=== PATIENT | male | born 1960 | race African-American/Black ===

== ENCOUNTER 2020-01-29 02:11 | Inpatient (IN) | payer MEDICARE, MEDICAID ==
[~2020-01-29] VITALS: Ht 175.3 cm; Wt 68.0 kg
--- NOTE | 2020-01-29 02:32 | NUR ---
ED Nurse Note: pt presents to ED c/o abd cramping and abnormal stools. pt's story is hard to follow but he mentions bhing seen and treated at another hospital for similar symptoms and also states that he has been incontinent of his bowels lately, noticing stool on his clothing
[2020-01-29 02:36] VITALS: BP 132/80
--- NOTE | 2020-01-29 02:53 | Emergency Room Report ---
History of Present Illness General Chief Complaint: General Complaint Source: Patient Present Illness HPI Patient presents claiming that he is passing blood per rectum. He states that he was admitted at [facility] for 2 days and just discharged yesterday. He states at [facility] he was passing black stool and bloody stool but they did not look. He states that he has been kicked out of his sister's place and needs assisted living. He states he drinks alcohol daily vodka and litzy. He is status post stroke with not taking blood thinners at this time. He has a history of seizures and is supposed be taking Depakote and Dilantin. He does not recall his last seizure. The patient is status post stroke and has right hand weakness. The patient was last evaluated here in 2016. He was treated for schizophrenia with exacerbation. At that time he was taking Seroquel and Cogentin. He was able to be discharged. No fevers, chills, sore throat, chest pain, palpitations, nausea, vomiting, diarrhea, dysuria, abdominal pain, shortness of breath, joint pain, rashes, depression, anxiety, visual changes, dizziness, headache. Allergies: Coded Allergies: MORPHINE (Verified Allergy, Unknown, 08/10/15) COVID-19 Screening Contact w/high risk pt: No Recent Travel to affected area: No Experienced COVID-19 symptoms?: No COVID-19 Testing performed INSURANCE ADJUSTOR: No Patient History Past Medical History: see triage record Social History: Reports: alcohol use; Denies: smoking Social History Narrative Homeless Reviewed Nursing Documentation: PMH: Agreed; PSxH: Agreed Nursing Documentation-PM Past Medical History: No History, Except For Hx Seizures: Yes Review of Systems All Other Systems: negative except mentioned in HPI Physical Exam Vital Signs Date Time Temp Pulse Resp B/P (MAP) Pulse Ox O2 Delivery O2 Flow Rate FiO2 01/29/20 02:13 98.1 89 20 132/80 (97) 90 Room Air Sp02 EP Interpretation: reviewed, abnormal - Interpreted as low by me General Appearance: no apparent distress, thin, Chronically Ill Head: normocephalic Eyes: bilateral eye normal inspection, bilateral eye PERRL, bilateral eye EOMI ENT: moist mucus membranes - Or dentition no lingual macerations Neck: supple Respiratory: lungs clear, normal breath sounds Cardiovascular #1: regular rate, rhythm Cardiovascular #2: 2+ radial (R) Gastrointestinal: normal inspection, normal bowel sounds, non tender, no mass, non-distended Genitourinary: no CVA tenderness Musculoskeletal: other - Contractures right hand Neurologic: yard pipe grader III-XII nml as tested, oriented - x2, DTRs symmetric, sensory intact, motor weakness - Right upper extremity, speech normal, normal gait Psychiatric: mood/affect normal, no delusions Skin: no rash, warm/dry Medical Decision Making Diagnostic Impression: Primary Impression: Lower gastrointestinal bleed Additional Impressions: Alcohol abuse Subtherapeutic anticonvulsant levels Failure to thrive Qualified Codes: R62.7 - Adult failure to thrive ER Course Patient presents with reports of passing blood per rectum and possibly melena. Differential includes lower GI bleed, anemia, alcoholic gastritis amongst others. In addition based on history he is at risk for alcohol withdrawal. He is a complicated patient with multiple comorbidities. Evaluation with EKG, chest x-ray and labs. Patient treated with IV hydration. The patient is placed on a awake overnight monitor. EKG without injury. Chest x-ray without infiltrates. CBC and CMP normal. Tox screen positive for benzodiazepines. Hematocrit and hemoglobin normal. Valproic acid and Dilantin levels extremely low. Replacement ordered. Needs observation for possible alcohol withdrawal. Also clearly non-compliant with medication regimen. Social service, consult ordered. Patient admitted to medical floor. Laboratory Tests Test 01/29/20 03:06 01/29/20 03:23 White Blood Count 7.9 K/UL (4.8-10.8) Red Blood Count 4.96 M/UL (4.70-6.10) Hemoglobin 13.1 G/DL (14.2-18.0) L Hematocrit 42.7 % (42.0-52.0) Mean Corpuscular Volume 86 FL (80-99) Mean Corpuscular Hemoglobin 26.5 PG (27.0-31.0) L Mean Corpuscular Hemoglobin Concent 30.8 G/DL (32.0-36.0) L Red Cell Distribution Width 15.2 % (11.6-14.8) H Platelet Count 236 K/UL (150-450) Mean Platelet Volume 8.2 FL (6.5-10.1) Neutrophils (%) (Auto) 44.5 % (45.0-75.0) L Lymphocytes (%) (Auto) 45.3 % (20.0-45.0) H Monocytes (%) (Auto) 6.0 % (1.0-10.0) Eosinophils (%) (Auto) 1.7 % (0.0-3.0) Basophils (%) (Auto) 2.5 % (0.0-2.0) H Sodium Level 143 MMOL/L (136-145) Potassium Level 4.0 MMOL/L (3.5-5.1) Chloride Level 106 MMOL/L (98-107) Carbon Dioxide Level 28 MMOL/L (21-32) Anion Gap 9 mmol/L (5-15) Blood Urea Nitrogen 28 mg/dL (7-18) H Creatinine 1.2 MG/DL (0.55-1.30) Estimated Glomerular Filtration Rate > 60 mL/min (>60) Glucose Level 88 MG/DL (74-106) Calcium Level 8.9 MG/DL (8.5-10.1) Total Bilirubin 0.2 MG/DL (0.2-1.0) Aspartate Amino Transferase (AST) 23 U/L (15-37) Alanine Aminotransferase (ALT) 19 U/L (12-78) Alkaline Phosphatase 83 U/L (46-116) Total Creatine Kinase 175 U/L (26-308) Troponin I 0.000 ng/mL (0.000-0.056) Total Protein 8.5 G/DL (6.4-8.2) H Albumin 3.7 G/DL (3.4-5.0) Globulin 4.8 g/dL Albumin/Globulin Ratio 0.8 (1.0-2.7) L Thyroid Stimulating Hormone (TSH) 1.818 uiU/mL (0.358-3.740) Salicylates Level 3.2 ug/mL (2.8-20) Acetaminophen Level < 2 MCG/ML (10-30) L Phenytoin (Dilantin) Level 0.6 ug/mL (10-20) L Valproic Acid Level 23 MCG/ML (50-100) L Serum Alcohol < 3 mg/dL Urine Color Pale yellow Urine Appearance Clear Urine pH 5 (4.5-8.0) Urine Specific [place] 1.025 (1.005-1.035) Urine Protein Negative (NEGATIVE) Urine Glucose (UA) Negative (NEGATIVE) Urine Ketones 1+ (NEGATIVE) H Urine Blood Negative (NEGATIVE) Urine Nitrite Negative (NEGATIVE) Urine Bilirubin Negative (NEGATIVE) Urine Urobilinogen 1 MG/DL (0.0-1.0) H Urine Leukocyte Esterase Negative (NEGATIVE) Urine Opiates Screen Negative (NEGATIVE) Urine Barbiturates Screen Negative (NEGATIVE) Phencyclidine (PCP) Screen Negative (NEGATIVE) Urine Amphetamines Screen Negative (NEGATIVE) Urine Benzodiazepines Screen Positive (NEGATIVE) H Urine Cocaine Screen Negative (NEGATIVE) Urine Marijuana (THC) Screen Negative (NEGATIVE) EKG Diagnostic Results Rate: normal Rhythm: NSR ST Segments: no acute changes Rhythm Strip Diag. Results EP Interpretation: yes Rhythm: NSR, no PVC's, no ectopy Chest X-Ray Diagnostic Results Chest X-Ray Diagnostic Results : Chest X-Ray Ordered: Yes # of Views/Limited/Complete: 1 View Indication: Other EP Interpretation: Yes Interpretation: no consolidation, no effusion, no pneumothorax Impression: No acute disease Electronically Signed by: Electronically signed by Yohannes Melo MD Last Vital Signs Date Time Temp Pulse Resp B/P (MAP) Pulse Ox O2 Delivery O2 Flow Rate FiO2 01/29/20 08:00 98.1 94 20 124/80 (95) 94 01/29/20 06:08 Room Air Status: improved Disposition: ADMITTED INPATIENT Condition: Serious Referrals: NOT CHOSEN SERINA/,REFERRING (PCP) Yohannes Melo MD Jan 29, 2020 02:53
[2020-01-29 03:25] LABS: BASOPHILS % (AUTO) 2.5 % (0.0-2.0); EOSINOPHILS % (AUTO) 1.7 % (0.0-3.0); HEMATOCRIT 42.7 % (42.0-52.0); HEMOGLOBIN 13.1 G/DL (14.2-18.0); LYMPHOCYTES % (AUTO) 45.3 % (20.0-45.0); MEAN CORPUSCULAR VOLUME 86 FL (80-99); NEUTROPHILS % (AUTO) 44.5 % (45.0-75.0); PLATELET COUNT 236 K/UL (150-450); RED BLOOD COUNT 4.96 M/UL (4.70-6.10); RED CELL DISTRIBUTION WIDTH 15.2 % (11.6-14.8); WHITE BLOOD COUNT 7.9 K/UL (4.8-10.8)
[2020-01-29 03:37] LABS: ANION GAP 9 mmol/L (5-15); BLOOD UREA NITROGEN 28 mg/dL (7-18); CALCIUM 8.9 MG/DL (8.5-10.1); CARBON DIOXIDE 28 MMOL/L (21-32); CHLORIDE 106 MMOL/L (98-107); CREATININE 1.2 MG/DL (0.55-1.30); SODIUM 143 MMOL/L (136-145)
[2020-01-29 03:43] LABS: APPEARANCE,URINE CLEAR; COLOR,URINE PALE YELLOW
[2020-01-29 03:44] LABS: BILIRUBIN, URINE NEGATIVE (NEGATIVE); GLUCOSE, URINE (UA) NEGATIVE (NEGATIVE); KETONES,URINE 1+ (NEGATIVE); LEUKOCYTE ESTERASE ,URINE NEGATIVE (NEGATIVE); NITRITE,URINE NEGATIVE (NEGATIVE); PH,URINE 5 (4.5-8.0); PROTEIN,URINE NEGATIVE (NEGATIVE); UROBILINOGEN,URINE 1 MG/DL (0.0-1.0)
[2020-01-29 03:50] LABS: ALANINE AMINOTRANSFERASE 19 U/L (12-78); ALBUMIN 3.7 G/DL (3.4-5.0); ALBUMIN/GLOBULIN RATIO 0.8 (1.0-2.7); ALKALINE PHOSPHATASE 83 U/L (46-116); ASPARTATE AMINO TRANSFERASE 23 U/L (15-37); BILIRUBIN,TOTAL 0.2 MG/DL (0.2-1.0); CREATINE KINASE 175 U/L (26-308)
[2020-01-29] MEDS ORDERED: Phenytoin 1,000 MG in NS 275 ML IVPB STA (03:59)
--- NOTE | 2020-01-29 04:42 | NUR ---
ED Nurse Note: report given to MARTHA Garcia
[2020-01-29 05:15] VITALS: BP 111/75
[2020-01-29] MEDS ORDERED: Phenytoin 100mg cap ORAL STA (05:15)
--- NOTE | 2020-01-29 06:02 | NUR ---
NURSES NOTE: Received pt from ER at 0510. Pt A/OX3, able to answer most questions appropriately. No outward s/s of distress noted. Breathing pattern is even and unlabored on RA. Head to toe assessment completed. Skin is clear and intact. IV site R external jugular vein, in tact, infusing medications without incident. Pt denies pain at this time. New orders processed for admission. All due meds will be given. Bed at lowest level, call light within reach. Pt will continue to be monitored.
[2020-01-29] MEDS ORDERED: HYDROmorphone 1mg/ml Carpuject IVP PRN (06:45)
--- NOTE | 2020-01-29 07:30 | NUR ---
NURSE NOTES: Report received from Radha THOMAS, rounds made. Patient resting in semi-fowlers position in bed. AOx2, reoriented patient to place/time and call light, verbalized understanding, calm. No distress, respirations even/unlabored on RA. Right external jugular IV heplock in place, asymptomatic (will start IVF as ordered). Seizure precautions (seizure pads in place). Call light in reach, bed in lowest position, will continue to monitor.
[2020-01-29 08:00] VITALS: BP 124/80
--- NOTE | 2020-01-29 08:22 | NUR ---
NURSES NOTE: Requests from Dr. Clemons to call Dr Clark for possible further admission orders. Message left. Endorsed to f/u with AM nurse. Dr. Howell contacted for additional admission orders as well from request of Dr Clemons. New order from Dante- to make diet clear liquid and further changes would be made upon his visit with patient.
--- NOTE | 2020-01-29 08:28 | NUR ---
HAND OFF: Report given to MARTHA Bradley. Pt stable.
--- NOTE | 2020-01-29 09:00 | NUR ---
*-* INSURANCE *-* PATIENT HAS EXHAUSTED MEDICARE DAY HAS A SECONDARY INSURANCE IS [employer] W/ SOC $790.00
--- NOTE | 2020-01-29 10:28 | Diagnostic Imaging Report ---
Procedure: XRAY Chest 1v Reason for study: Cough Comparison films: None. FINDINGS: A single one view chest is obtained. Vascularity is normal. Mild interstitial prominence likely geriatric changes. No acute alveolar process. Cardiac and mediastinal silhouette are within normal limits. CP angles are sharp. The bony thorax appear unremarkable. IMPRESSION: NO ACUTE CARDIOPULMONARY DISEASE.
--- NOTE | 2020-01-29 10:51 | NUR ---
HORSE TREKKING GUIDE NOTE SW met w/ pt to assess his needs and discuss substance abuse. Pt presents as A&O 4x. RUDS positive for Benzo. PT reports he has dx of Schizophrenia and was prescribed Seroquel, [place] and Depakote. Pt denies current drug abuse. Pt has hx of ETOH and Meth abuse. Pt has been homeless for 1 1/2 years after leaving [facility] [address]. LEANDRA spoke w/ Lee, Admin from [facility] [address] and was informed pt abused methamphetamine while staying at his facility and he was not the payee of pt's income. Lee reports pt left the facility stating that he will move out of state. Lee confirmed he will not take pt back. Pt reports he received SSDI $1351/mo but had no access to fund more than a year. PT lost his ID and his SSDI fund card. LEANDRA encouraged pt to call office to receive his income. PT reports he was recently discharged from [facility] a few days ago. Pt reports he was given community resource. Pt is ambulatory w/o DMEs and independent w/ ADLs. Emergency contact: Anita Rosado (sister)[phone] EMERGENCY ONLY SW will contact several facilities to see if they are willing to accept pt.
--- NOTE | 2020-01-29 11:00 | NUR ---
NURSE NOTES: Reconciled at there are no home medications with Dr. Clemons, however pharmacy inquiring if patient will be starting Depakote due to seizure history and previous order (which was cancelled). Provided information from ER MD note and pharmacy recommendation for Depakote 500 mg PO Q12 hr, instructed to find out patient's pharmacy information to call them and get the correct dose he is taking, informed Dr. Clemons patient is homeless and patient states he does not get his medication from a pharmacy, but from a SNF, updated [facility] pharmacy of above. Also notified Dr. Clemons, if patient needed COVID swab done, patient is asymptomatic, so no testing required at this time.
[2020-01-29] MEDS: D5 1/2NS 1,000 ML IV SCH ×2 (11:15→23:25)
--- NOTE | 2020-01-29 11:15 | NUR ---
NURSE NOTES: Left message for Dr. Clark regarding patient's admission, no further orders at this time.
[2020-01-29 12:00] VITALS: BP 104/68
--- NOTE | 2020-01-29 12:22 | NUR ---
INSPECTOR EXHAUST EMISSIONS NOTE SW spoke w/ Aminta from [facility] [phone] #[phone] that there is no bed available in any [facility] area.
--- NOTE | 2020-01-29 14:45 | NUR ---
NURSE NOTES: Discussed DVT prophylaxis with Dr. Clemons, orders for ambulate TID, informed Dr. Clemons, patient has history of stroke with right sided weakness, order for PT evaluation (plan for 01/29, MD aware) and SCDs (applied at 1445).
--- NOTE | 2020-01-29 15:48 | NUR ---
NURSE NOTES: Patient returned from CT head, via bed, alert/oriented x2, calm, on RA.
[2020-01-29 16:00] VITALS: BP 97/63
--- NOTE | 2020-01-29 16:31 | Diagnostic Imaging Report ---
EXAM: CT CT Head no Contrast INDICATION: Altered mental status. TECHNIQUE: Axial images of the brain were obtained with subsequent sagittal and coronal reformats. All CT scans at this facility are performed using dose modulation techniques as appropriate to a performed exam including the following: automated exposure control with adjustment of the mA and/or kV according to patient size. COMPARISON STUDY: None. RADIATION DOSE: CTDIvol: 53.4 mGy DLP: 1098.9 mGy-cm Dose information generated by the CT scanner is available in PACS. FINDINGS: There is age related senescent changes with ventricular and sulcal prominence. White matter micro-ischemic changes noted. There is no acute large territory cortical infarct, hemorrhage, mass effect or shift. Ventricles and cisterns as well as brainstem and posterior fossa appear unremarkable. The sellar region is normal. Sinuses, mastoid air cells and bony calvarium appear intact. IMPRESSION: Age related senescent changes. No acute intracranial abnormality.
[2020-01-29] MEDS: Hydrocortisone 25mg supp RECTAL SCH (18:46)
[2020-01-29 20:00] VITALS: BP 110/65
--- NOTE | 2020-01-29 20:15 | Consultation ---
DATE OF CONSULTATION: 01/29/2020 CHIEF COMPLAINT: Rectal bleeding. HISTORY OF PRESENT ILLNESS: This is a very pleasant male with complaint of rectal bleeding. According to him, he had diarrhea one episode and then had some blood. He has not had this problem since then. He was apparently admitted to [facility]. He was sent home. He said without any admission. He is a chronic drinker. He drinks alcohol vodka and litzy every day, prior history of stroke, high blood pressure, seizure disorder. ALLERGIES: To morphine. MEDICATIONS: Please see medication reconciliation list. PAST SURGICAL HISTORY: Undescended testicle which has been repaired. SOCIAL HISTORY: The patient smokes and drinks. Denies any IV drug abuse. PHYSICAL EXAMINATION: VITAL SIGNS: Temperature 97.8, pulse 87, respirations 18, blood pressure is 104/68. HEENT: Normocephalic and atraumatic. Sclerae are anicteric. NECK: Supple. No evidence of obvious lymphadenopathy. CARDIOVASCULAR: Regular rhythm. Plus S1, S2. LUNGS: Clear to auscultation bilaterally. ABDOMEN: Positive bowel sounds. Soft and nontender. No rebound. No guarding. No peritoneal sign. EXTREMITIES: No cyanosis. No clubbing. No edema. LABORATORY AND DIAGNOSTIC DATA: White count 7.9, hemoglobin 13, hematocrit 42, platelet count is 236. ASSESSMENT AND PLAN: This is a 60-year-old male with history of alcoholism, alcoholic, came in with questionable GI bleeding with hemoglobin of 13. Plan to start the patient on Protonix 40 mg daily, Anusol-HC for possible hemorrhoids as a cause of rectal bleeding. Followup endoscopy and colonoscopy at this time given the hemoglobin of 13 and no recurrent GI bleeding at this time. The patient was encouraged to stop drinking and the risk of the drinking has been explained to him. I want to thank, Dr. Sami Clemons, for this kind referral. Dilshad Clark M.D. DR: Cornelia JOB#: [id number] CC: Sami Clemons D.O.
--- NOTE | 2020-01-29 20:18 | NUR ---
HAND-OFF: Report given to Radha THOMAS, patient stable.
[2020-01-29] MEDS ORDERED: Phenytoin 100mg cap ORAL SCH (21:00)
--- NOTE | 2020-01-29 21:30 | History and Physical Report ---
DATE OF ADMISSION: 01/29/2020 CONSULTANTS: 1. Dilshad Clark M.D. 2. Daniela Pike M.D. CHIEF COMPLAINT: Lower GI bleed. BRIEF HISTORY: This is a 60-year-old homeless man, who presents to [facility] with the above-mentioned diagnoses. Currently, sleeping in bed, refusing to answer questions. REVIEW OF SYSTEMS: Unavailable. PAST MEDICAL HISTORY: 1. Failure to thrive. 2. Low GI bleed. 3. Alcohol abuse. PAST SURGICAL HISTORY: Unknown. MEDICATIONS: IV fluids, Zofran, Dilaudid, and valproic. ALLERGIES: Morphine. SOCIAL HISTORY: Unable to obtain secondary to the patient is very lethargic and sleepy. OBJECTIVE: GENERAL: Lethargic in bed, not talking much. VITAL SIGNS: Temperature is 97 degrees, pulse 87, respirations 18, and blood pressure 104/68. CARDIOVASCULAR: S1, S2. No murmur. LUNGS: Poor air exchange. ABDOMEN: Bowel sounds distant. EXTREMITIES: No cyanosis, clubbing, or edema. NEUROLOGIC: The patient is sleepy in bed. Not following directions. LABORATORY AND DIAGNOSTIC DATA: Labs at this time show hemoglobin and hematocrit are 13 and 42, otherwise CBC is normal. BMP shows BUN 28. Troponin 0.00. Urinalysis, 1+ ketone. Urine toxicology, positive benzo. ASSESSMENT: 1. Lower GI bleed. 2. Failure to thrive. PLAN: 1. GI evaluation. 2. I will ask Psych to evaluate. 3. We will continue to follow this patient. 4. CBC and BMP in the morning. Sami Clemons D.O. DR: MAHI JOB#: [id number] CC:
[2020-01-29] MEDS: Depakote 500mg tab ORAL SCH (22:08)
--- NOTE | 2020-01-29 22:29 | NUR ---
NURSES NOTE: Met pt in bed, A/OX3, pt is able to answer most questions appropriately. No outward s/s of distress noted. Breathing pattern is even and unlabored on RA. Pt denies pain at this time. IV R external jugular, intact, patent. All due medications will be given. Bed at lowest level, call light within reach. Pt will continue to be monitored.
[2020-01-30] VITALS: BP 104/73
[2020-01-30 04:00] VITALS: BP 108/71
[2020-01-30 06:08] LABS: HEMATOCRIT 41.7 % (42.0-52.0); HEMOGLOBIN 12.7 G/DL (14.2-18.0); MEAN CORPUSCULAR VOLUME 87 FL (80-99); PLATELET COUNT 220 K/UL (150-450); RED BLOOD COUNT 4.82 M/UL (4.70-6.10); RED CELL DISTRIBUTION WIDTH 15.3 % (11.6-14.8); WHITE BLOOD COUNT 6.2 K/UL (4.8-10.8)
[2020-01-30 06:21] LABS: ANION GAP 8 mmol/L (5-15); BLOOD UREA NITROGEN 18 mg/dL (7-18); CALCIUM 8.2 MG/DL (8.5-10.1); CARBON DIOXIDE 26 MMOL/L (21-32); CHLORIDE 106 MMOL/L (98-107); POTASSIUM 3.9 MMOL/L (3.5-5.1); SODIUM 140 MMOL/L (136-145)
[2020-01-30] MEDS ORDERED: LORazepam 1mg tab ORAL PRN (06:45)
--- NOTE | 2020-01-30 07:25 | NUR ---
NURSE NOTES: Report received from Radah THOMAS, rounds made. Patient sleeping in semi-fowlers position in bed, easily arousable. AOx4, calm. No distress, respirations even/unlabored on RA. Right external jugular IV heplock in place, asymptomatic (IV D5 1/2 NS at 60 ml/hr). Seizure precautions (seizure pads in place). Call light in reach, bed in lowest position, will continue to monitor.
--- NOTE | 2020-01-30 07:49 | NUR ---
HAND OFF: Report given to MARTHA Bradley.
[2020-01-30 07:59] VITALS: BP 122/69
[2020-01-30] MEDS: Hydrocortisone 25mg supp RECTAL SCH ×2 (08:15→18:00)
[2020-01-30] MEDS: Depakote 500mg tab ORAL SCH (08:15)
--- NOTE | 2020-01-30 10:10 | NUR ---
PT EVALUATION NOTE Patient seen for initial evaluation and treatment initiated. Patient presents with generalized weakness and decreased balance which impairs patient's ability to perform mobility tasks safely. Patient requires CGA for transfers, unsteady upon standing. Patient able to ambulate 125 ft, used FWW for ambulation for improved balance as gait is ataxic and patient is fall risk. Patient will benefit from skilled inpatient PT intervention to address strength, balance and safety for improved level of functional mobility. Recommend discharge to [facility] once medically cleared by MD. Recommend FWW for safe ambulation and to decrease fall risk. Addendum: 01/30/20 at 1157 by CHARLA MCCONNELL PT Amended: Links added.
--- NOTE | 2020-01-30 10:55 | General Progress Note ---
Assessment/Plan Problem List: (1) CVA (cerebral vascular accident) ICD Codes: I63.9 - Cerebral infarction, unspecified SNOMED: 982437981 (2) Failure to thrive SNOMED: 27383143 Qualifiers: Qualified Codes: R62.7 - Adult failure to thrive (3) Alcohol abuse ICD Codes: F10.10 - Alcohol abuse, uncomplicated SNOMED: 34905207 (4) Lower gastrointestinal bleed ICD Codes: K92.2 - Gastrointestinal hemorrhage, unspecified SNOMED: 85469656 Status: unchanged Assessment/Plan: pt diet gi f/u cbc bmp am dc plan Subjective Constitutional: Reports: weakness Allergies: Coded Allergies: MORPHINE (Verified Allergy, Unknown, 08/10/15) All Systems: reviewed and negative except above Subjective sleepy in bed calm Objective Last 24 Hour Vital Signs Date Time Temp Pulse Resp B/P (MAP) Pulse Ox O2 Delivery O2 Flow Rate FiO2 01/30/20 08:00 Room Air 01/30/20 07:59 98.2 71 20 122/69 (86) 98 01/30/20 04:00 97.6 73 17 108/71 (83) 94 01/30/20 00:00 98.5 85 18 104/73 (83) 93 01/29/20 21:00 Room Air 01/29/20 20:00 98.6 86 18 110/65 (80) 98 01/29/20 16:00 97.6 81 20 97/63 (74) 97 01/29/20 12:00 97.8 87 18 104/68 (80) 96 Intake and Output 01/29/20 01/30/20 19:00 07:00 Intake Total 920 ml 960 ml Output Total 800 ml 315 ml Balance 120 ml 645 ml Intake Oral 500 ml 480 ml IV Total 420 ml 480 ml Output Urine Total 800 ml 315 ml # Voids 1 # Bowel Movements 2 3 Laboratory Tests 01/29/20 17:00: Ammonia 42H, Vitamin B12 Level 512, Methylmalonic Acid [Pending], Rapid Plasma Reagin Non reactive, Treponema pallidum Ab (FTA-ABS) [Pending] 01/30/20 05:00: White Blood Count 6.2, Red Blood Count 4.82, Hemoglobin 12.7L, Hematocrit 41.7L , Mean Corpuscular Volume 87, Mean Corpuscular Hemoglobin 26.4L, Mean Corpuscular Hemoglobin Concent 30.5L, Red Cell Distribution Width 15.3H, Platelet Count 220, Mean Platelet Volume 8.3, Neutrophils (%) (Auto) , Lymphocytes (%) (Auto) , Monocytes (%) (Auto) , Eosinophils (%) (Auto) , Basophils (%) (Auto) , Differential Total Cells Counted 100, Neutrophils % ( Manual) 24L, Lymphocytes % (Manual) 55H, Monocytes % (Manual) 18H, Eosinophils % (Manual) 2, Basophils % (Manual) 1, Band Neutrophils 0, Platelet Estimate Adequate, Platelet Morphology Normal, Sodium Level 140, Potassium Level 3.9, Chloride Level 106, Carbon Dioxide Level 26, Anion Gap 8, Blood Urea Nitrogen 18 , Creatinine 1.0, Estimat Glomerular Filtration Rate > 60, Glucose Level 88, Calcium Level 8.2L Height (Feet): 5 Height (Inches): 9.00 Weight (Pounds): 150 General Appearance: lethargic EENT: normal ENT inspection Neck: normal alignment Cardiovascular: normal peripheral pulses, normal rate, regular rhythm Respiratory/Chest: chest wall non-tender, lungs clear, normal breath sounds Abdomen: normal bowel sounds, non tender, soft Extremities: normal inspection Edema: no edema noted Arm (L), no edema noted Arm (R), no edema noted Leg (L), no edema noted Leg (R), no edema noted Pedal (L), no edema noted Pedal (R), no edema noted Generalized Skin: normal pigmentation, warm/dry Sami Clemons DO Jan 30, 2020 10:55
--- NOTE | 2020-01-30 10:59 | Consultation ---
DATE OF CONSULTATION: 01/29/2020 NEUROLOGIC CONSULTATION CONSULTING PHYSICIAN: Karl Howell MD CHIEF COMPLAINT: This 60-year-old left-handed man with a history of schizophrenia, possible previous cerebral aneurysm treatment at [facility] years ago, previous stroke, possible head injury. He claims diabetes. He was admitted with a chief complaint of lower GI bleeding. On admission, his CBC revealed a normal white count and platelet count, slightly low hemoglobin, but normal hematocrit. His indices were low. Toxicology results reveal the Dilantin of 0.6 and valproic acid of 23. He had benzodiazepines in the urine. Serum salicylates were elevated. His alcohol level is less than 3. The patient was admitted to the emergency room and was started on 1000 mg of IV Dilantin and 400 mg of oral Dilantin and he was given 1 dose of valproic acid 500 mg and then 500 mg twice a day. The patient's chemistries were normal except for BUN of 28 and high total protein of 8.5. Urinalysis is basically normal. The chest x-ray was unremarkable for his age. As far as I can tell, the patient had no seizure on admission. I was asked to see the patient to prescribe his Depakote and Dilantin. The patient apparently takes aspirin. He does not know the doses of Dilantin and Depakote. He is basically a heavy drinker and has been a heavy smoker, so he started to quit alcohol 2 days ago. The patient cannot give a good history. He states he has had migraines in the past. He denies any memory loss. He cannot tell me when he had his last seizure. There is no family history of neurologic disease available. PAST MEDICAL HISTORY/PAST MEDICAL ILLNESSES: 1. See above for aneurysm and stroke. 2. History of diabetes. 3. Probable chronic obstructive pulmonary disease. 4. Alcohol abuse. ALLERGIES: He is allergic allegedly to morphine SOCIAL HISTORY: He lives in [facility]. He also apparently lived with his sister, but was kicked out of his sister's home. FAMILY HISTORY: Unavailable. REVIEW OF SYSTEMS: Unavailable. PHYSICAL EXAMINATION: GENERAL: He is an overweight man, lying in bed, with distended abdomen. VITAL SIGNS: Temperature is 97.8 degrees, blood pressure is 104/68, respiratory rate is 18, pulse oximetry is 96% on room air. HEENT: Examination of the head reveals very poor dentition. NECK: Supple. Carotids are +1. No bruits could be appreciated. LUNGS: Clear. CARDIOVASCULAR: Heart tones are distant. No obvious S3, S4, murmurs, or rubs. ABDOMEN: Bowel sounds are intact. There is no obvious tenderness, masses or organomegaly. EXTREMITIES: He has a wrist drop, right. NEUROLOGIC EXAMINATION: MENTAL STATUS: Judgment could not be tested. He was lethargic and will fall asleep. He was not stimulated. Sometimes he responded with stimulation of his body. Affect was appropriate to flat. Memory, he knew past memory, birthday was 1960. Immediate recall was 3 out of 3 objects. Recent recall was 1 out of 3 objects at 5 minutes. Intellect, similarities are concrete, i.e., train and bicycles have wheels. Orientation, he thinks the date is 02/01/2020. He knows he is at [facility]. He is oriented to person. Language function, spoken speech is dysarthric without paraphasias. Comprehension is intact. There is no right and left confusion. He could spell world backwards and forwards. CRANIAL NERVE EXAMINATION: CRANIAL NERVES II: Visual blevins are probably intact bilaterally. CRANIAL NERVES III, IV AND : Extraocular motility was intact with saccadic smooth pursue. Pupils are about 3.5 mm round and sluggishly reactive. CRANIAL NERVES V: Difficult to evaluate, probably normal facial sensation. CRANIAL NERVE VII: Facial strength is fairly symmetrical. CRANIAL NERVE VIII: Auditory acuity was partially intact to loud whisper both ears. CRANIAL NERVES IX AND X: Not tested. CRANIAL NERVES XI AND XII: Normal. Tongue sticks out of the midline without fasciculations or atrophy. MUSCLE EXAMINATION: Muscle bulk is symmetrically decreased. Tone is basically normal. Strength, he has some right upper extremity weakness of at least 4/5 distally, and in the right lower extremity, muscle strength is 5-/5. On the left side, muscle strength is probably 5/5. REFLEXES: Zero in the upper and lower extremities with downgoing toes and testing for Babinski response. COORDINATION: [id number] revealed mild dysmetria in the right upper extremity. The left side was intact. Pbli-[id number] testing was basically intact. GAIT AND STATION: Not tested. SENSORY EXAMINATION: Proprioception was normal. Pinprick was subjectively normal as was fine touch. IMPRESSION: The patient has mild encephalopathy, which may be related to his benzodiazepine. We will probably get a CT scan of his brain because of his drinking history. The patient has a seizure disorder, whether it is just alcohol withdrawal seizures or related to the cerebrovascular disease is unclear. I am going to continue him on his Depakote 500 mg p.o. b.i.d. and Dilantin 300 mg a day for the time being. Serum ammonia, B12, and methylmalonic acid levels. Thyroid functions will also be obtained. He may need an EEG at some point. As far as iknow he does have wernicke's disease . He has saccadic smooth pursuit, but no nystagmus. The patient also has probable left hemisphere stroke or involving the left side of the vivienne with dysarthria. PLAN: 1. CT scan of the brain. 2. He had anticonvulsants as above. 3. B12, methylmalonic acid level. 4. Thyroid functions and TSH. 5. GI workup for bleeding. 6. Give patient thiamine I.V. Thank you for this interesting case. Karl Howell MD DR: Thomas JOB#: [id number] CC: NOAH
--- NOTE | 2020-01-30 11:15 | Consultation ---
DATE OF CONSULTATION: 01/29/2020 PSYCHOTHERAPY CONSULTATION PROGRESS NOTE TREATING ATTENDING PHYSICIAN: Sami Clemons D.O. HISTORY OF PRESENT ILLNESS: The patient is a 60-year-old male patient brought into the hospital for lower GI bleed. The patient has a history of schizophrenia. The patient has been anxious and disorganized and for these reasons, he was referred for psychotherapeutic services. When I assessed the patient, he reports that he is homeless. He states that he wants to get in some facility. He states that he is anxious because of his medical condition. However, he denies suicidal or homicidal thoughts of ideation. He denies any auditory or visual hallucinations. He states that he wants specific medication. Since the patient has a history of alcohol use and he has been self-medicating with alcohol. At this time, he denies suicidal or homicidal thoughts of ideation. He denies any auditory or visual hallucinations. However, he has been compliant today with the clinician. Positive episodes of disorganization and confusion. PAST MEDICAL HISTORY: Includes a history of lower GI bleed and failure to thrive. ALLERGIES: He is allergic to morphine. SUBSTANCE ABUSE HISTORY: The patient states that he has a history of alcohol use. Denies history of illicit substance abuse. Positive history of smoking cigarettes. PSYCHIATRIC HISTORY: The patient has a history of schizophrenia. The patient has a history of psychotropic medications in the past. SOCIAL HISTORY: The patient is a 60-year-old male patient. He states that he is currently homeless. Financially sustained through [employer]. MENTAL STATUS EXAMINATION: Alert and oriented to person and place and time. His mood is anxious. Affect congruent. Thought process is disorganized. He has poor attention and concentration. Poor insight, judgment, and impulse control. STRENGTHS: The patient is placement at this time. WEAKNESS: The patient is anxious and helpless. DIAGNOSES: 1. Paranoid schizophrenia. 2. Lower GI bleed. 3. Psychosocial stressors, moderate. I assessed this patient and provided the patient with, 4. Reality orientation is focused on improving the cognitive level of function as the patient is presently disorganized to person, place, time, and situation. 5. Provided the patient with supportive psychotherapy, encouraging the patient to communicate and articulate thoughts utilizing positive communication skills. 6. Provide the patient with psychoeducation on mental health symptoms to increase insight in the patient's mental illness. 7. The patient is encouraged to participate in supportive participation, milieu. 8. Plan is to maintain medication compliance, assist with positive coping skills to stabilize mood, thoughts, and behavior. Psychotherapy service 45 minutes. This clinician has reviewed the patient's chart and discussed treatment with treatment team. Rebeka Medrano PsyD. DR: VERNA JOB#: [id number] CC:
--- NOTE | 2020-01-30 11:28 | NUR ---
DISCHARGE PLANNING: PATIENT HAS EXHAUSTED ALL MEDICARE DAYS PLACEMENT WILL BE VERY DIFFICULT AT THIS TIME PATIENT UNDERSTANDS HE KNOTT NO MEDICARE DAYS WITH SHARE OF COST BUT AT THIS TIME ELECTED NOT TO TAKES THE NECESSARY STEP TO RETRIEVE FUNDS PATIENT HAS NO ID PATIENT AWARE OF AVAILABLE HALFWAY AND PROVIDE DETAIL LIST OF SHELTERS CM ASKED FOR DISCHARE FROM DR EMILY LANCASTER INSTRUCTED TO FAXED TO DR DIA[employer] Addendum: 01/30/20 at 1142 by ANNMARIE GRAF LVN VIK T: [phone] F: [phone]
--- NOTE | 2020-01-30 11:37 | General Progress Note ---
Assessment/Plan Problem List: (1) Lower gastrointestinal bleed ICD Codes: K92.2 - Gastrointestinal hemorrhage, unspecified SNOMED: 08202683 (2) CVA (cerebral vascular accident) ICD Codes: I63.9 - Cerebral infarction, unspecified SNOMED: 463663840 (3) Alcohol abuse ICD Codes: F10.10 - Alcohol abuse, uncomplicated SNOMED: 21942078 Status: unchanged Assessment/Plan: stable h&H no recurrent bleed ok for dc with out patient fu ppi Subjective Allergies: Coded Allergies: MORPHINE (Verified Allergy, Unknown, 08/10/15) Objective Last 24 Hour Vital Signs Date Time Temp Pulse Resp B/P (MAP) Pulse Ox O2 Delivery O2 Flow Rate FiO2 01/30/20 08:00 Room Air 01/30/20 07:59 98.2 71 20 122/69 (86) 98 01/30/20 04:00 97.6 73 17 108/71 (83) 94 01/30/20 00:00 98.5 85 18 104/73 (83) 93 01/29/20 21:00 Room Air 01/29/20 20:00 98.6 86 18 110/65 (80) 98 01/29/20 16:00 97.6 81 20 97/63 (74) 97 01/29/20 12:00 97.8 87 18 104/68 (80) 96 Intake and Output 01/29/20 01/30/20 19:00 07:00 Intake Total 920 ml 960 ml Output Total 800 ml 315 ml Balance 120 ml 645 ml Intake Oral 500 ml 480 ml IV Total 420 ml 480 ml Output Urine Total 800 ml 315 ml # Voids 1 # Bowel Movements 2 3 Laboratory Tests 01/29/20 17:00: Ammonia 42H, Vitamin B12 Level 512, Methylmalonic Acid [Pending], Rapid Plasma Reagin Non reactive, Treponema pallidum Ab (FTA-ABS) [Pending] 01/30/20 05:00: White Blood Count 6.2, Red Blood Count 4.82, Hemoglobin 12.7L, Hematocrit 41.7L , Mean Corpuscular Volume 87, Mean Corpuscular Hemoglobin 26.4L, Mean Corpuscular Hemoglobin Concent 30.5L, Red Cell Distribution Width 15.3H, Platelet Count 220, Mean Platelet Volume 8.3, Neutrophils (%) (Auto) , Lymphocytes (%) (Auto) , Monocytes (%) (Auto) , Eosinophils (%) (Auto) , Basophils (%) (Auto) , Differential Total Cells Counted 100, Neutrophils % ( Manual) 24L, Lymphocytes % (Manual) 55H, Monocytes % (Manual) 18H, Eosinophils % (Manual) 2, Basophils % (Manual) 1, Band Neutrophils 0, Platelet Estimate Adequate, Platelet Morphology Normal, Sodium Level 140, Potassium Level 3.9, Chloride Level 106, Carbon Dioxide Level 26, Anion Gap 8, Blood Urea Nitrogen 18 , Creatinine 1.0, Estimat Glomerular Filtration Rate > 60, Glucose Level 88, Calcium Level 8.2L Height (Feet): 5 Height (Inches): 9.00 Weight (Pounds): 150 General Appearance: no apparent distress EENT: normal ENT inspection Neck: supple Cardiovascular: normal rate Respiratory/Chest: lungs clear Abdomen: normal bowel sounds, non tender, soft Extremities: non-tender Dilshad Clark MD Jan 30, 2020 11:37
[2020-01-30 12:00] VITALS: BP 105/75
--- NOTE | 2020-01-30 13:38 | NUR ---
*-*DISCHARGE PLANNING*-* PATIENT HAS BEEN REFERRED AND ACCEPETED WITH [facility] P: [phone]
--- NOTE | 2020-01-30 13:50 | NUR ---
*-*DISCHARGE PLANNED*-* PATIENT HAS BEEN ACCEPTED AND WILL BE DISCHARGED BACK TO: [facility] P: [phone] FOR NURSE TO NURSE REPORT ROOM# 26.[facility] TRANSP[facility] SET FOR 3:30PM S/W LESLI [id number].
--- NOTE | 2020-01-30 15:15 | NUR ---
NURSE NOTES: Report called to Demian THOMAS, at [facility].
--- NOTE | 2020-01-30 15:18 | NUR ---
DISCHARGE PLANNING PATIENT HAS BEEN ACCEPTED TO [facility] ([facility]) PATIENT NEEDS A COVID-19 PRIOR TO ACCEPTANCE CHARGE NURSE MADE AWARE
--- NOTE | 2020-01-30 15:22 | NUR ---
*-*DISCHARGE PLANNED*-* PATIENT HAS BEEN ACCEPTED AND WILL BE DISCHARGED BACK TO: [facility] P: [phone] FOR NURSE TO NURSE REPORT ROOM# 26.[facility] WILL CALL S/W LESLI Merida28Armand.
[2020-01-30] MEDS ORDERED: DEPAKOTE500 MG PO (15:25)
[2020-01-30] MEDS ORDERED: NEURONTIN100 MG ORAL (15:26)
[2020-01-30] MEDS ORDERED: ANUSOL HC1 SUPP RECTAL (15:28)
[2020-01-30] MEDS ORDERED: ATIVAN1 MG ORAL (15:31)
[2020-01-30] MEDS ORDERED: PROTONIX40 MG ORAL (15:31)
[2020-01-30] MEDS ORDERED: DILANTIN100 MG ORAL (15:32)
--- NOTE | 2020-01-30 15:45 | NUR ---
NURSE NOTES: Patient updated on new order for COVID RAPID to be done prior to transfer to SNF, verbalized understanding, obtained at 1540. RN to specimen directly to lab and entered in COVID log book at 1543.
[2020-01-30 16:00] VITALS: BP 121/77
--- NOTE | 2020-01-30 17:26 | NUR ---
*-*DISCHARGE PLANNED*-* PATIENT HAS BEEN ACCEPTED AND WILL BE DISCHARGED BACK TO: [facility] P: [phone] FOR NURSE TO NURSE REPORT ROOM# 26.[facility] SET FOR 5:40PM
[2020-01-30] MEDS ORDERED: Gadavist 7.5mMol/7.5ml vial IV PRN (17:45)
--- NOTE | 2020-01-30 18:15 | Consultation ---
DATE OF CONSULTATION: 01/30/2020 INITIAL PSYCHIATRIC EVALUATION HISTORY OF PRESENT ILLNESS: The patient is a 60-year-old male with lower GI bleeding. The patient came in to the hospital because he had lower GI bleeding, who is confused and disorganized. Apparently, he has a history of alcohol abuse, who was very uncooperative on interview initially, but eventually the patient started complaining of anxiety secondary to alcohol withdrawal. He is denying any current suicidal or homicidal ideations, but he does have some confusion, some disorganized thought process, and some mood lability. MEDICAL HISTORY: He has history of failure to thrive, lower GI bleed, and alcohol abuse. ALLERGIES: To morphine. SUBSTANCE ABUSE HISTORY: Alcohol abuse. PSYCHOTROPIC MEDICATIONS ON ADMISSION: He is on Depakote 500 mg twice a day. FAMILY PSYCHIATRIC HISTORY: Denies. PAIN ASSESSMENT: 10/13 DEVELOPMENTAL PROBLEMS: Denies. SOCIAL HISTORY: Currently homeless, but financially supported by [employer] and Medicare. No legal problems. PSYCHIATRIC HISTORY: Bipolar 2. STRENGTHS: He is motivated to get better and he has friends . WEAKNESSES: Impulsive and homeless. MENTAL STATUS EXAMINATION: A 60-year-old male. Appearance is disheveled. Attitude, irritable and agitated. Affect, guarded and restricted. Intellect poor because he does not know current events and does not know last four presidents. Mood, depressed and anxious. Motor activity, psychomotor agitation. Attention span is poor because he cannot do serial 7s or spell world backwards. Orientation x2 as he is oriented to person and place, not to time or situation. Speech is pressured, but linear. Thought process, disorganized. Thought content, denies auditory or visual hallucinations or delusions. Perception is impaired because he has some perceptual disturbances such as paranoia. Abstract reasoning is poor because he does not understand proverbs and only has concrete thinking. Insight is poor because he does not recognize severity of his mood disorder. Judgment is poor because he does not accept consequences for his actions. Short-term memory, 3 out of 3 recall after 5-minute delay with good short-term memory. Long-term memory is intact because of his knowledge of long-term events in his life such as high school that he went to. DIAGNOSES: 1. Bipolar 2 disorder secondary to alcohol abuse. 2. Medical, GI bleeding. 3. Psychosocial stressors, financial. 4. Functional impairment is mild. PLAN: I am going to start this patient on Neurontin 300 mg three times a day to reduce anxiety, Ativan one every 6 hours p.r.n. anxiety or agitation, and Depakote 500 twice a day for seizure prophylaxis and mood stabilization. Also, I provided 20 minutes of cognitive behavioral therapy. Twenty minutes of cognitive behavioral therapy will help him identify his automatic negative thoughts and help him convert his negative thoughts to more positive thoughts to reduce depression, anxiety, and mood lability. Chart was reviewed. Discussed with staff. The patient was seen and assessed at bedside. Daniela Pike M.D. DR: MERYL JOB#: [id number] CC:
--- NOTE | 2020-01-30 19:25 | NUR ---
NURSE NOTES: Report given to [facility]. IV discontinued at 1446, no active bleeding. Patient aware of transfer plans. Patient transferred with all belongings in stable condition at 1925.
--- NOTE | 2020-01-31 00:30 | Progress Note ---
DATE: 01/30/2020 The patient is doing quite well. A CT scan showed cerebral atrophy, not much in the way of any stroke. He denies headaches at this time. There are no seizures or blackouts. Still is somewhat confused. PHYSICAL EXAMINATION: VITAL SIGNS: Temperature is 98.4 degrees, blood pressure is 121/77, respiratory rate is 20, pulse oximetry is 100. MENTAL STATUS: He is alert and awake. His dysarthria is basically gone. Date, he knows it is either 01/29/2020 or 01/30/2020. Place, he knows he is at [facility] on the 3rd floor. Person, he is oriented to person. Language functions are unchanged. Cranial nerve II reveals intact visual blevins. Cranial nerves III, IV, and , extraocular motility is full. Pupils are approximately 4 mm, round, reactive to light. Cranial nerve V, facial sensation intact to fine touch. Cranial nerve VII, facial strength is 5/5. Cranial nerve VIII, auditory acuity is pretty much intact bilaterally. Cranial nerve XII, tongue protrudes in the midline without fasciculations or atrophy. Muscle examination, muscle bulk symmetrical bilaterally. Tone is normal. Strength 5/5 in the left upper and both lower extremities. Right upper extremity has weakness of the extensor muscles of his right hand and of the intrinsic muscles of his right hand. The rest of the muscles seemed to be normal. There is no asterixis. CT scan report is noted. IMPRESSION: We will obtain EEG and MRI because the CT scan does not reveal any infarct. His muscle weakness in the right upper extremity is in the territory of multiple distal nerves. PLAN: EEG and MRI scan of the brain. Karl Howell MD DR: CAMRYN JOB#: [id number] CC:
--- NOTE | 2020-02-01 12:14 | Discharge Summary ---
Discharge Summary Discharge Summary _ DATE OF ADMISSION: 01/29/2020 DATE OF DISCHARGE: 01/30/2020 DISCHARGED BY: Dr. Sami Clemons CONSULTANTS: Dr. Karl Medrano PsyD BRIEF HOSPITAL COURSE: Patient is a 60-year-old homeless male, who presented to ED due to lower GI bleed. Patient stated he was passing blood per rectum. He was admitted to an outside hospital for 2 days and was just discharged the day prior. He has recently been kicked out of his sister's place and needs assistance with living accommodations. He drinks alcohol daily. He had a prior stroke but is not on blood thinners. He has a history of seizures but is not on any medications. He does not recall his last seizure. Upon evaluation at ED, vital signs were stable. He was given IV hydration. Blood work did not show any leukocytosis. Hemoglobin 13 and hematocrit 43. Electrolytes were normal. LFTs normal. Troponin negative. Urinalysis was essentially negative. Urine toxicology positive for benzodiazepine. Serum alcohol level was less than 3. Salicylate level 3.2. Acetaminophen level less than 2. Dilantin level 0.6. Valproic acid level 23. He was given 1000 mg of IV Dilantin and 400 mg oral Dilantin. He was given a dose of valproic acid. EKG did not show any evidence of injury. Patient was clearly noncompliant with medication regimen. He was then admitted to medical floor for further evaluation. He was evaluated by GI specialist. He was started on Protonix. He was given Anusol HC for possible hemorrhoid as cause of rectal bleeding. Patient had stable hemoglobin. He was encouraged to stop excessive alcohol intake. He underwent neurological evaluation. Patient was assessed to have mild encephalopathy which may be related to benzodiazepine. Patient has seizure disorder, unclear whether alcohol withdrawal related or cerebrovascular disease. He was continued on Depakote 500 mg twice daily and Dilantin 300 mg. Patient possibly had left hemisphere stroke. He was given IV thiamine. Psychiatric evaluation was done. He was diagnosed with bipolar 2 disorder secondary to alcohol abuse. Depakote would help with seizure prophylaxis and mood stabilization. He was given supportive psychotherapy. CT scan of the head showed cerebral atrophy. No acute intracranial abnormality. Syphilis screening was nonreactive. Treponema antibody pending. Hemoglobin and hematocrit level was stable. He was tolerating regular diet with no recurrence of bleeding. He was eventually discharged to a SNF. FINAL DIAGNOSES: Lower GI bleed Alcohol abuse History of CVA Bipolar 2 disorder Paranoid schizophrenia Failure to thrive Seizure disorder DISPOSITION: Patient was discharged to [facility]. DISCHARGE MEDICATIONS: Refer to Discharge Medication List. I have been assigned to complete a discharge summary on this account, I was not involved with the patient's management.--RICHARD Mcdonald Jacqueline Robles NP Feb 01, 2020 12:14
== END 2020-01-30 19:30 | DRG 393 ==
LOC: EMR 02:40 → EDBEDREQ 02:55 → 3E 03:02 → EDBEDREQ 03:12 → 3E 05:34
DX: K64.9 Unspecified hemorrhoids (principal); G92 Toxic encephalopathy; F20.0 Paranoid schizophrenia; F31.81 Bipolar II disorder; Z86.73 Personal history of transient ischemic attack (TIA), and cerebral infarction without residual deficits; G40.909 Epilepsy, unspecified, not intractable, without status epilepticus; F10.10 Alcohol abuse, uncomplicated; T42.4X5A Adverse effect of benzodiazepines, initial encounter; Z88.6 Allergy status to analgesic agent; Z59.0 Homelessness
CPT/HCPCS: 36415; 70450; 71045; 80048; 80053; 80164; 80185; 80307; 81003; 82140; 82550; 82607; 83921; 84443; 84484; 85007; 85025; 86592; 86780; 86850; 86900; 86901; 87081; 93005; 96361; 96365; 99285; G0480; J1165; J7030; U0002